=== PATIENT | female | born 1995 ===

== ENCOUNTER 2025-08-03 08:00 | Day surgery (SDC) | payer OTHER ==
[2025-07-31 11:34] VITALS: BP 118/79
[2025-08-03] MEDS ORDERED: CEFAZOLIN SODIUM 1,000 MG VIAL IV ONE (12:30)
== END 2025-08-03 15:35 | disposition home or self-care (01) ==
LOC: CIR.AMB 08:00
PROVIDERS: ATTEND Otolaryngology
DX: D37.02 Neoplasm of uncertain behavior of tongue (principal)